=== PATIENT | female | born 1930 | race Asian ===

== ENCOUNTER 2019-07-04 17:06 | Inpatient (IN) | payer MEDICARE, OTHER ==
[~2019-07-04] VITALS: Ht 152.4 cm; Wt 49.4 kg
[2019-07-04] MEDS ORDERED: diphenhydrAMINE 50 MG/1 ML VIAL IM ONE (17:15)
--- NOTE | 2019-07-04 17:35 | NUR ---
PT IS A/OX1, BIB PRIVATE AMBULANCE FROM FROM [facility], FOR MEDICAL CLEARANCE. PER REPORT, PT HAS BEEN INCREASINGLY AGITATED AND "STRIKING" STAFF AT THE SNF. PT ARRIVED AGITATED AND DOES NOT SPEAK SOMALI. PT'S PRIMARY LANGUAGE IS GERMAN, WHICH I AM ABLE TO SPEAK AND COMMICATE W/ THE PT. PT IS REDIRECTABLE AND VERBALLY AGREED NOT TO STRIKE THE ER STAFF. PT HAS BEEN CALM AND COOPERATIVE SINCE ARRIVAL. VSS. PT DENIES PAIN, C/P, SOB, N/V/D, DIZZINESS, HEADACHE. PT'S FAMILY IS AT THE BEDSIDE.
[2019-07-04 17:38] LABS: BASOPHILS # (AUTO) 0.1 K/uL (0.0-8.0); BASOPHILS % (AUTO) 1.1 % (0.0-2.0); EOSINOPHILS # (AUTO) 0.3 K/uL (0.0-0.7); EOSINOPHILS % (AUTO) 5.1 % (0.0-7.0); HEMATOCRIT 33.1 % (31.2-41.9); HEMOGLOBIN 10.9 g/dL (10.9-14.3); LYMPHOCYTES # (AUTO) 1.5 K/uL (20.0-40.0); LYMPHOCYTES % (AUTO) 25.7 % (20.5-51.5); MEAN CORPUSCULAR HEMOGLOBIN 31.4 uug (24.7-32.8); MEAN CORPUSCULAR HGB CONC 33 g/dL (32.3-35.6); MEAN CORPUSCULAR VOLUME 94.8 fL (75.5-95.3); MONOCYTES # (AUTO) 0.8 K/uL (2.0-10.0); NEUTROPHILS # (AUTO) 3.3 K/uL (1.8-8.9); NEUTROPHILS % (AUTO) 55.1 % (38.5-71.5); PLATELET COUNT (AUTO) 258 K/uL (179-408); RED BLOOD CELL COUNT(AUTO) 3.49 MIL/uL (3.63-4.92)
[2019-07-04 17:41] LABS: *BILIRUBIN,URIN NEGATIVE (NEGATIVE); *KETONES,URINE NEGATIVE (NEGATIVE); *UROBILINOGEN,URINE 0.2 E.U./dl (NORMAL); LEUKOCYTE ESTERASE ,URINE 3+ (NEGATIVE); NITRITE, URINE NEGATIVE (NEGATIVE); PH,URINE 5.5 (5.0-8.0); UGLUCOSE NEGATIVE (NEGATIVE)
[2019-07-04 17:49] LABS: CARBON DIOXIDE 25 mmol/L (21-32); CHLORIDE 98 mmol/L (98-107); CREATININE 0.8 mg/dL (0.6-1.3); GLUCOSE 160 mg/dL (74-106); POTASSIUM 4.2 mmol/L (3.5-5.1); UREA NITROGEN, BLOOD 12 mg/dL (7-18)
[2019-07-04 17:54] LABS: ACETAMINOPHEN < 2.0 ug/mL (10-30); ALANINE AMINOTRANSFERASE 14 U/L (14-59); ALKALINE PHOSPHATASE 42 U/L (50-136); ASPARTATE AMINOTRANSFERASE 19 U/L (15-37); BILIRUBIN,DIRECT 0.1 mg/dL (0.0-0.2); BILIRUBIN,TOTAL 0.4 mg/dL (0.2-1.0); TOTAL PROTEIN, SERUM 8.2 g/dL (6.4-8.2)
[2019-07-04] MEDS ORDERED: BIMA2.5D5 EACHEYE (17:57)
[2019-07-04] MEDS ORDERED: LINA5TAB PO (17:57)
[2019-07-04] MEDS ORDERED: QUET25TA PO ×2 (17:57)
[2019-07-04] MEDS ORDERED: BRIM5DRO2 OP (17:57)
[2019-07-04] MEDS ORDERED: BLOO-140 IN (17:57)
[2019-07-04] MEDS ORDERED: DOCU100C36 PO (17:57)
[2019-07-04] MEDS ORDERED: METF-442 PO (17:57)
[2019-07-04] MEDS ORDERED: ACET325T53 PO (17:57)
[2019-07-04] MEDS ORDERED: MULT-213 PO (17:57)
[2019-07-04] MEDS ORDERED: NETA2.5D OP (17:57)
[2019-07-04] MEDS ORDERED: AMYL1CAP56 PO (17:57)
[2019-07-04 17:58] LABS: ETHANOL < 3 MG/DL (0-0)
[2019-07-04 17:59] LABS: *AMPHETAMINE, URINE NEGATIVE (NEGATIVE); *BARBITURATE, URINE NEGATIVE (NEGATIVE); *CANNABINOID, URINE NEGATIVE (NEGATIVE); *COCCAINE, URINE NEGATIVE (NEGATIVE); *OPIATE, URINE NEGATIVE (NEGATIVE); *PHENCYCLIDINE SCREEN,URINE NEGATIVE (NEGATIVE)
[2019-07-04 18:07] LABS: *BLOOD, URINE TRACE (NEGATIVE); *CLARITY,URINE CLOUDY (CLEAR); *COLOR,URINE YELLOW (YELLOW)
[2019-07-04 18:09] LABS: BACTERIA,URINE MANY /HPF (NONE SEEN); SQUAMOUS EPITHELIAL CELL,UR FEW /HPF (NONE SEEN); WBC,URINE 80-100 /HPF (0-3)
[2019-07-04] MEDS ORDERED: CEFTRIAXONE 1 G VIAL ONE (18:26)
[2019-07-04] MEDS ORDERED: LIDOCAINE HCL 1% 20 ML VIAL ONE (18:26)
[2019-07-04] MEDS ORDERED: CEFTRIAXONE 1 G VIAL IM ONE (18:30)
--- NOTE | 2019-07-04 19:07 | NUR ---
SHIFT REPORT GIVEN TO CHENCHO Rg RN.
--- NOTE | 2019-07-04 19:36 | NUR ---
SPOKE TO ART, CRISIS MECHANIC FOREMAN, WILL BE HERE IN 15 MIN.
--- NOTE | 2019-07-04 19:46 | NUR ---
ART, COMMUNITY INTEGRATION SPECIALIST ARRIVED IN ER.
--- NOTE | 2019-07-04 20:26 | NUR ---
Pt. admitted to MHU , under care of Dr. WHITTEN Belongs List completed.
--- NOTE | 2019-07-04 20:39 | NUR ---
SVITLANA PAGED, TORI LAUGHLIN PAGED.
[2019-07-04] MEDS ORDERED: IV NORMAL SALINE 500 ML IV ONE ×2 (21:00→22:00)
--- NOTE | 2019-07-04 21:00 | NUR ---
EPIC PAGED AGAIN.
--- NOTE | 2019-07-04 21:15 | NUR ---
EPIC PAGED AGAIN.
--- NOTE | 2019-07-04 22:08 | NUR ---
Pt. admitted to TELE , under care of Dr. TORI Riojas List completed. STARTED SECOND 500ML NS BAG, FLOOR NURSE TO FINISH NS ON FLOOR.
--- NOTE | 2019-07-04 22:17 | NUR ---
MRSA COLLECTED AND SENT TO LAB.
[2019-07-04] MEDS ORDERED: MAGNESIUM HYDROXIDE 30 ML LIQUID UDC PO PRN (22:30)
[2019-07-04] MEDS ORDERED: Z GUARD REMEDY PASTE 57 GM TUBE TOP PRN (22:30)
[2019-07-04] MEDS ORDERED: ACETAMINOPHEN 325 MG TABLET PO PRN ×2 (22:30)
[2019-07-04] MEDS ORDERED: ONDANSETRON 4 MG/2 ML VIAL IV PRN (22:30)
[2019-07-04] MEDS ORDERED: DEXTROSE 50% 50 ML DISP.SYRIN IV PRN (22:30)
[2019-07-04] MEDS: BRIMONIDINE-P 0.1% OPHTH DROP 5 ML DROPS EACHEYE SCH (22:30)
[2019-07-04] MEDS ORDERED: BIMATOPROST 0.01% OPHT DROP 2.5 ML BOTTLE EACHEYE SCH (22:30)
[2019-07-04 23:30] VITALS: BP 116/52
[2019-07-04] MEDS ORDERED: LORAZEPAM 2 MG/1 ML VIAL IV PRN (23:30)
[2019-07-04] MEDS: BLOOD SUGAR DIAGNOSTIC 1 EACH STRIP VI SCH (23:58)
[2019-07-04] MEDS: METFORMIN HCL 500 MG TABLET PO SCH (23:58)
[2019-07-05] MEDS: IV NS 1000 ML 1,000 ML IV PRN
[2019-07-05 04:54] VITALS: BP 119/51
--- NOTE | 2019-07-05 05:20 | NUR ---
Admitted to room 305; pt is very confused; refusing care; language barrier, pt speaking Slovak; Charge Nurse Barbaratrung spoke to pt's daughter at home if they coould come but they cant for they live far; Pt became very agitated, hitting staff and screaming and a wanderer, Dr Davila informed and gave order for ativan 1mg IV x1; ativan administered to pt and then pt slept. safety maintained; pt put in 2:1 sitter for safety.
[2019-07-05] MEDS ORDERED: LORAZEPAM 2 MG/1 ML VIAL IV STA (06:26)
[2019-07-05 06:35] LABS: BASOPHILS # (AUTO) 0.1 K/uL (0.0-8.0); EOSINOPHILS # (AUTO) 0.2 K/uL (0.0-0.7); EOSINOPHILS % (AUTO) 3.2 % (0.0-7.0); HEMATOCRIT 31.9 % (31.2-41.9); HEMOGLOBIN 10.6 g/dL (10.9-14.3); LYMPHOCYTES # (AUTO) 1.6 K/uL (20.0-40.0); LYMPHOCYTES % (AUTO) 25.7 % (20.5-51.5); MEAN CORPUSCULAR HEMOGLOBIN 31.8 uug (24.7-32.8); MEAN CORPUSCULAR HGB CONC 33 g/dL (32.3-35.6); MEAN CORPUSCULAR VOLUME 96.3 fL (75.5-95.3); MONOCYTES # (AUTO) 0.7 K/uL (2.0-10.0); MONOCYTES % (AUTO) 11.5 % (0.0-11.0); NEUTROPHILS # (AUTO) 3.7 K/uL (1.8-8.9); NEUTROPHILS % (AUTO) 58.6 % (38.5-71.5); PLATELET COUNT (AUTO) 228 K/uL (179-408); RED BLOOD CELL COUNT(AUTO) 3.32 MIL/uL (3.63-4.92); WHITE BLOOD COUNT (AUTO) 6.4 K/uL (3.8-11.8)
[2019-07-05 06:43] LABS: CARBON DIOXIDE 25 mmol/L (21-32); CHLORIDE 103 mmol/L (98-107); CHOLESTEROL 191 mg/dL (<200); CREATININE 0.7 mg/dL (0.6-1.3); GLUCOSE 126 mg/dL (74-106); HDL CHOLESTEROL 58 mg/dL (40-60); MAGNESIUM 1.6 mg/dL (1.8-2.4); PHOSPHOROUS 3.7 mg/dL (2.5-4.9); POTASSIUM 3.9 mmol/L (3.5-5.1); TRIGLYCERIDES 88 MG/DL (30-150); UREA NITROGEN, BLOOD 10 mg/dL (7-18)
[2019-07-05] MEDS: BLOOD SUGAR DIAGNOSTIC 1 EACH STRIP VI SCH ×4 (06:46→21:42)
--- NOTE | 2019-07-05 07:32 | NUR ---
pt awake screaming at staff and hitting, referred to [facility] with order for ativan, given IVP; continue to monitor.
--- NOTE | 2019-07-05 08:00 | NUR ---
IN BED AWAKE ALERT BUT CONFUSED X3, VERY AGITATED AND VERBALLY AND PHYSICALLY COMBATIVE, TRIED TO GET OUT OB BED. REFUSED TO TAKE MEDICATION AND EAT BREAKFAST. WILL FOLLOW-UP WITH HOSPITALIST AND DR WHITTEN FOR PSYCH CONSULT. NO SS OF PAIN OR DISTRESS. CONTINUE WITH 1:1 SITTER
[2019-07-05] MEDS: MULTIVITAMINS,THERAPEUTIC TABLET PO SCH (08:43)
[2019-07-05] MEDS: DOCUSATE SODIUM 100 MG CAPSULE PO SCH ×2 (08:43→16:59)
[2019-07-05] MEDS: METFORMIN HCL 500 MG TABLET PO SCH ×2 (08:43→16:59)
[2019-07-05] MEDS: LINAGLIPTIN 5 MG TABLET PO SCH (08:43)
[2019-07-05] MEDS: BRIMONIDINE-P 0.1% OPHTH DROP 5 ML DROPS EACHEYE SCH ×2 (08:44→17:00)
--- NOTE | 2019-07-05 10:45 | NUR ---
seen by dr palencia made aware of patient behavior with orders for anxiety pending dr tucker consult
[2019-07-05] MEDS: INSULIN REGULAR, HUMAN 300 UNIT/3 ML VIAL SQ PRN ×2 (12:07→17:36)
[2019-07-05] MEDS: HYDROCODONE/APAP 5-325MG TABLET PO PRN (12:30)
[2019-07-05] MEDS: MAGNESIUM SULFATE/D5W 100 ML IV SCH ×2 (14:15→14:44)
[2019-07-05] MEDS: LORAZEPAM 2 MG/1 ML VIAL IV PRN (14:50)
[2019-07-05] MEDS: QUETIAPINE FUMARATE 25 MG TABLET PO SCH (16:59)
[2019-07-05] MEDS ORDERED: CEFTRIAXONE 1 G in IV DEXTROSE 5% 50 ML IV SCH (18:00)
--- NOTE | 2019-07-05 18:39 | NUR ---
SEEN BY DR WIHTTEN FOR PSYCH EVAL, PLAN DC TO MHU WHEN MEDICALLY CLEARED. CONTINUE WITH 1:1
[2019-07-05] MEDS: LATANOPROST OPHT DROP 2.5 ML BOTTLE EACHEYE SCH (20:40)
--- NOTE | 2019-07-05 23:25 | NUR ---
patient is becoming angry, agitated, aggressive towards staff, striking out and shouting. Attempted to redirect, dimmed the light, gave warm blanket. Seems calmer but still removing certified mortician leads.
[2019-07-05] MEDS ORDERED: LORAZEPAM 2 MG/1 ML VIAL IV ONE (23:30)
[2019-07-06] MEDS: IV NS 1000 ML 1,000 ML IV PRN ×3 (00:09→20:14)
[2019-07-06 00:27] VITALS: BP 108/42
[2019-07-06] MEDS: BLOOD SUGAR DIAGNOSTIC 1 EACH STRIP VI SCH ×6 (06:49→21:50)
[2019-07-06 06:50] VITALS: BP 136/52
--- NOTE | 2019-07-06 07:36 | NUR ---
continue with 1:1 sitter, remains confused and disoriented x3, high risk for fall. continue to refuse to eat sleeping at short intervals
[2019-07-06 08:14] LABS: CARBON DIOXIDE 24 mmol/L (21-32); CHLORIDE 105 mmol/L (98-107); CREATININE 0.6 mg/dL (0.6-1.3); GLUCOSE 117 mg/dL (74-106); MAGNESIUM 2.5 mg/dL (1.8-2.4); UREA NITROGEN, BLOOD 9 mg/dL (7-18)
[2019-07-06] MEDS: METFORMIN HCL 500 MG TABLET PO SCH ×2 (08:32→16:39)
[2019-07-06] MEDS: LINAGLIPTIN 5 MG TABLET PO SCH (08:33)
[2019-07-06] MEDS: DOCUSATE SODIUM 100 MG CAPSULE PO SCH ×2 (08:33→16:39)
[2019-07-06] MEDS: HYDROCODONE/APAP 5-325MG TABLET PO PRN (08:33)
[2019-07-06] MEDS: MULTIVITAMINS,THERAPEUTIC TABLET PO SCH (08:34)
[2019-07-06] MEDS: QUETIAPINE FUMARATE 25 MG TABLET PO SCH ×3 (08:34→20:45)
[2019-07-06] MEDS: BRIMONIDINE-P 0.1% OPHTH DROP 5 ML DROPS EACHEYE SCH ×2 (08:34→16:37)
[2019-07-06] MEDS: LORAZEPAM 2 MG/1 ML VIAL IV PRN ×2 (09:00→20:05)
[2019-07-06] MEDS: INSULIN REGULAR, HUMAN 300 UNIT/3 ML VIAL SQ PRN (11:46)
--- NOTE | 2019-07-06 12:00 | NUR ---
PATIENT REMAINS CALMED, UP ON CHAIR BUT CONTINUE TO REFUSE CARE. BECOMES COMBATIVE AND AGGRESSIVE WITH CARE
[2019-07-06 12:03] VITALS: BP 145/84
[2019-07-06] MEDS: NITROFURANTOIN/NITROFURAN MAC 100 MG CAPSULE PO SCH ×2 (14:49→16:37)
--- NOTE | 2019-07-06 15:58 | NUR ---
SEEN BY DR Paco TIJERINA FOR MEDICAL FOLLOW-UP AND DR WHITTEN FOR PSYCH. ALSO SPOKE WITH DAUGHTER AGREED PLAN TO GO TO MHU FOR TRANSITION WHENB MEDICALLY CLEARED.
[2019-07-06 16:00] VITALS: BP 127/72
--- NOTE | 2019-07-06 16:30 | NUR ---
PATIENT BS 68, AWAKE ALERT, WARM AND DRY SKIN. OJ WITH SUGAR GIVEN PO. RECHECKED AFTER 15-30 MINS BS 66 ASYMPTOMATIC. RECHECKED AGAIN AT 1732 BS 78. WILL OBSERVE
[2019-07-06 20:00] VITALS: BP 163/90
[2019-07-06] MEDS: LATANOPROST OPHT DROP 2.5 ML BOTTLE EACHEYE SCH (20:45)
--- NOTE | 2019-07-06 21:00 | NUR ---
patient is striking at staff, screams, pulls on the IV line. Poorly re-directable, spits out meds, throws blankets around the room.
[2019-07-07 00:44] VITALS: BP 170/83
[2019-07-07] MEDS: LORAZEPAM 2 MG/1 ML VIAL IV PRN ×3 (02:09→20:54)
--- NOTE | 2019-07-07 04:57 | NUR ---
patient continues to be agitated, aggressive, pulling lines, refusing Tx, scratching herself. Order for 1:1 sitter was put for patient safety.
[2019-07-07 06:16] VITALS: BP 158/68
--- NOTE | 2019-07-07 06:52 | NUR ---
patient is awake, uncooperative with care, strikes at staff, screams, attempts to rip out her iv line. Unable to administer accucheck in the AM, unable to administer oral meds during the shift. Ativan 1mg Q6 IV is vaguely effective. According to Uzbek-speaking nurse, the patient is delusional, confused with confabulations and persecutory delusions, continues to demand to be released, tries to leave the bed. Sitter is at bedside for safety.
[2019-07-07] MEDS: BLOOD SUGAR DIAGNOSTIC 1 EACH STRIP VI SCH ×4 (07:07→21:10)
[2019-07-07 07:30] VITALS: BP 138/67
--- NOTE | 2019-07-07 08:00 | NUR ---
AWAKE ALERT BUT REMAINS CONFUSED X3, COMBATIVE AND PHYSICALLY ABUSIVE WITH STAFF DURING CARE. CONTINUE TO REFUSE TO EAT, IVF AT NS 75 ML/HR SR ON MONITOR
[2019-07-07] MEDS: NITROFURANTOIN/NITROFURAN MAC 100 MG CAPSULE PO SCH (08:04)
[2019-07-07] MEDS: LINAGLIPTIN 5 MG TABLET PO SCH (08:05)
[2019-07-07] MEDS: DOCUSATE SODIUM 100 MG CAPSULE PO SCH ×2 (08:05→16:33)
[2019-07-07] MEDS: HYDROCODONE/APAP 5-325MG TABLET PO PRN (08:05)
[2019-07-07] MEDS: MULTIVITAMINS,THERAPEUTIC TABLET PO SCH (08:05)
[2019-07-07] MEDS: QUETIAPINE FUMARATE 25 MG TABLET PO SCH ×3 (08:05→20:53)
[2019-07-07] MEDS: METFORMIN HCL 500 MG TABLET PO SCH ×2 (08:05→16:33)
[2019-07-07] MEDS: BRIMONIDINE-P 0.1% OPHTH DROP 5 ML DROPS EACHEYE SCH ×2 (08:06→16:25)
[2019-07-07] MEDS: IV NS 1000 ML 1,000 ML IV PRN (08:06)
[2019-07-07] MEDS ORDERED: CEFTRIAXONE 1 G VIAL IM SCH (09:00)
[2019-07-07] MEDS: IV D5/ 0.9% NACL 1,000 ML IV PRN (09:49)
--- NOTE | 2019-07-07 10:00 | NUR ---
SEEN BY DR KEENAN AND HOSPITALIST DR TIJERINA WITH ORDER TO CHANGE PATIENT STATUS TO MS. HOSPITALIST MADE AWARE OF LOW BS DURING THE EVENING WITH ORDER TO CHANGE IV TO D5 NS,
[2019-07-07] MEDS ORDERED: CEFTRIAXONE 1 G in IV DEXTROSE 5% 50 ML IV SCH (11:00)
[2019-07-07] MEDS: INSULIN REGULAR, HUMAN 300 UNIT/3 ML VIAL SQ PRN ×2 (11:37→21:15)
[2019-07-07 12:05] VITALS: BP 130/70
--- NOTE | 2019-07-07 14:02 | NUR ---
PATIENT UP ON BED NO SS OF AGITATION, PAIN OR SOB. CONTINUE WITH 1:1 SITTER
[2019-07-07] MEDS: NORMAL SALINE IV SCH ×2 (14:33→21:43)
[2019-07-07] MEDS: AMPICILLIN IV SCH ×2 (14:33→21:43)
[2019-07-07 16:01] VITALS: BP 164/74
--- NOTE | 2019-07-07 18:11 | NUR ---
PATIENT STARTED TO BE MORE ALERT AND DRINKING RESOURCE AND JUICE.
[2019-07-07 19:30] VITALS: BP 137/67
--- NOTE | 2019-07-07 19:30 | NUR ---
patient received in bed sleeping. sitter at bed side for safety. comfort and safety measures provided. iv intact and patent. will continue plan of care.
[2019-07-07] MEDS: LATANOPROST OPHT DROP 2.5 ML BOTTLE EACHEYE SCH (20:54)
[2019-07-08] MEDS: IV D5/ 0.9% NACL 1,000 ML IV PRN (00:16)
[2019-07-08] MEDS ORDERED: MORPHINE SULFATE 2 MG/1 ML DISP.SYRIN IV PRN (04:00)
[2019-07-08] MEDS: NORMAL SALINE IV SCH (05:03)
[2019-07-08] MEDS: AMPICILLIN IV SCH (05:03)
[2019-07-08 06:36] VITALS: BP 137/75
[2019-07-08] MEDS: BLOOD SUGAR DIAGNOSTIC 1 EACH STRIP VI SCH ×3 (06:41→16:50)
--- NOTE | 2019-07-08 06:51 | NUR ---
patient slept throughout night. v/s stable. no signs of acute distress. all medications administered and tolerated well. Ativan administered once for anxiety and agitation. will endorse care to morning nurse. Addendum: 07/08/19 at 0752 by RUDOLPH ASTUDILLO RN ativan administered 2053 and 706. when taking out of Pyxis at 07 Pyxis reported count was off, but charge corrected and contacted pharmacy. count was 12 before taking the ativan out at 0707. 11 after taking the ativan out.
--- NOTE | 2019-07-08 06:53 | NUR ---
patient refused am labs this morning. will endorse to morning nurse to inform
[2019-07-08] MEDS: LORAZEPAM 2 MG/1 ML VIAL IV PRN (07:07)
[2019-07-08 07:41] VITALS: BP 154/75
--- NOTE | 2019-07-08 08:10 | NUR ---
Pt. is resting in bed with sitter at bedside aox1 confused. IV wrapped in R forearm 20 gauge intact patent running 75 cc hour. Pt. is uncooperative with care. Safety measures in place. Call light within reach. Will continue to monitor pt.
[2019-07-08] MEDS: INSULIN REGULAR, HUMAN 300 UNIT/3 ML VIAL SQ PRN ×2 (08:47→18:05)
[2019-07-08] MEDS: METFORMIN HCL 500 MG TABLET PO SCH ×2 (08:48→17:00)
[2019-07-08] MEDS: DOCUSATE SODIUM 100 MG CAPSULE PO SCH ×2 (08:49→17:01)
[2019-07-08] MEDS: QUETIAPINE FUMARATE 25 MG TABLET PO SCH ×2 (08:49→17:01)
[2019-07-08] MEDS: LINAGLIPTIN 5 MG TABLET PO SCH (08:49)
[2019-07-08] MEDS: MULTIVITAMINS,THERAPEUTIC TABLET PO SCH (08:49)
[2019-07-08] MEDS: BRIMONIDINE 0.2% OPHT DROP 10 ML BOTTLE EACHEYE SCH ×2 (10:18→17:01)
[2019-07-08 12:32] VITALS: BP 153/65
--- NOTE | 2019-07-08 15:25 | NUR ---
Pt.'s IV infiltrated. Removed IV and assessed site. One more dose of IV antibiotics is scheduled. Due to pt. being d/cd to [facility] asked Dr. Rueda if IV antibiotics can be given PO. Awaiting response from doctor about antibiotics.
[2019-07-08 15:47] VITALS: BP 129/87
--- NOTE | 2019-07-08 16:13 | NUR ---
Dr. Rueda approved PO ampicillin instead of IV ampicillin due to IV infiltrating and removed. Spoke to pharmacy about correct dose. Put in new order awaiting PO ampicillin for pt.
[2019-07-08] MEDS: LATANOPROST OPHT DROP 2.5 ML BOTTLE EACHEYE SCH (17:01)
--- NOTE | 2019-07-08 17:08 | NUR ---
Daughter at bedside. Pt. took all medications and has increased appetite. Awaiting d/c to M[facility] unit. Daughter aware of plans.
--- NOTE | 2019-07-08 19:32 | NUR ---
Pt. stable and discharged to MHU via wheel chair. Walked pt. down to MHU unit with ANALYSIS INTERN and belongings. Report given to PM nurse.
== END 2019-07-08 19:20 | DRG 689 ==
LOC: ER 17:08 → TELE3 22:01 → MEDSURG3 07-07 13:28
DX: N39.0 Urinary tract infection, site not specified (principal); G93.41 Metabolic encephalopathy; E87.2 Acidosis; F03.91 Unspecified dementia, unspecified severity, with behavioral disturbance; E11.65 Type 2 diabetes mellitus with hyperglycemia; H40.9 Unspecified glaucoma; K59.00 Constipation, unspecified; Z91.14 Patient's other noncompliance with medication regimen; B95.2 Enterococcus as the cause of diseases classified elsewhere; F29 Unspecified psychosis not due to a substance or known physiological condition; E11.9 Type 2 diabetes mellitus without complications
CPT/HCPCS: 36415; 70030-TC; 70450; 71045; 80307; 83605; 83735; 84100; 84443; 85025; 85730; 87040; 87086; 93005; A4663; G0378; G0480; G0480-TC; J0290; J0696; J1815; J2060; J3475; J3490; J7030; J7040; J7042; J7060

== ENCOUNTER 2019-07-08 20:02 | Inpatient (IN) | payer MEDICARE, OTHER ==
[~2019-07-08] VITALS: Ht 152.4 cm; Wt 44.9 kg
[2019-07-08 20:00] VITALS: BP 115/55
[~2019-07-08 20:02] MED LIST: ACET325T53 PO; AMYL1CAP56 PO; BIMA2.5D5 EACHEYE; BLOO-140 IN; BRIM5DRO2 OP; DOCU100C36 PO; LINA5TAB PO; METF-442 PO; MULT-213 PO; NETA2.5D OP; QUET25TA PO
[2019-07-08] MEDS ORDERED: MAG HYDROX/AL HYDROX/SIMETH 30 ML LIQUID UDC PO PRN (20:15)
[2019-07-08] MEDS ORDERED: TEMAZEPAM 7.5 MG CAPSULE PO PRN (20:15)
[2019-07-08] MEDS ORDERED: MAGNESIUM HYDROXIDE 30 ML LIQUID UDC PO PRN (20:15)
[2019-07-08] MEDS ORDERED: BLOOD SUGAR DIAGNOSTIC 1 EACH STRIP VI ONE (20:15)
[2019-07-09 07:30] VITALS: BP 108/50
[2019-07-09] MEDS: LORAZEPAM 0.5 MG TABLET PO PRN (10:03)
[2019-07-09] MEDS: ACETAMINOPHEN 325 MG TABLET PO PRN (12:05)
[2019-07-09] MEDS ORDERED: Medication Not On Formulary EA (Metformin Hcl 1,000 MG) PO SCH (17:00)
[2019-07-09] MEDS: DOCUSATE SODIUM 100 MG CAPSULE PO SCH (17:38)
[2019-07-09] MEDS: QUETIAPINE FUMARATE 25 MG TABLET PO SCH ×2 (17:38→21:38)
[2019-07-09] MEDS: METFORMIN HCL 500 MG TABLET PO SCH (17:38)
[2019-07-09] MEDS: LIPASE/PROTEASE/AMYLASE 4200 UNITS CAPSULE.DR PO SCH (17:40)
[2019-07-09] MEDS ORDERED: Medication Not On Formulary EA (Netarsudil Mesylate (Rhopressa) 1 DROP) OP SCH (18:00)
[2019-07-09] MEDS ORDERED: BIMATOPROST 0.01% OPHT DROP 2.5 ML BOTTLE EACHEYE SCH (21:00)
[2019-07-09 21:35] VITALS: BP 120/59
[2019-07-09] MEDS: NITROFURANTOIN/NITROFURAN MAC 100 MG CAPSULE PO SCH (21:38)
[2019-07-09] MEDS: TIMOLOL MALEATE 0.5% OPHT DROP 5 ML BOTTLE EACHEYE SCH (21:40)
[2019-07-09] MEDS: LATANOPROST OPHT DROP 2.5 ML BOTTLE EACHEYE SCH (21:41)
[2019-07-09] MEDS: BRIMONIDINE 0.2% OPHT DROP 10 ML BOTTLE EACHEYE SCH (21:41)
[2019-07-10 07:58] VITALS: BP 136/63
[2019-07-10 08:00] VITALS: BP 136/63
[2019-07-10] MEDS: MULTIVIT, IRON, MIN NO. 8, FA TABLET PO SCH (08:56)
[2019-07-10] MEDS: NITROFURANTOIN/NITROFURAN MAC 100 MG CAPSULE PO SCH ×2 (08:56→20:46)
[2019-07-10] MEDS: METFORMIN HCL 500 MG TABLET PO SCH ×2 (08:56→18:01)
[2019-07-10] MEDS: LINAGLIPTIN 5 MG TABLET PO SCH (08:56)
[2019-07-10] MEDS: ACETAMINOPHEN 325 MG TABLET PO PRN (08:57)
[2019-07-10] MEDS: DOCUSATE SODIUM 100 MG CAPSULE PO SCH ×2 (08:59→18:01)
[2019-07-10] MEDS: OMEGA-3 FATTY ACIDS/FISH OIL CAPSULE PO SCH (08:59)
[2019-07-10] MEDS: QUETIAPINE FUMARATE 25 MG TABLET PO SCH ×3 (08:59→20:46)
[2019-07-10] MEDS: TIMOLOL MALEATE 0.5% OPHT DROP 5 ML BOTTLE EACHEYE SCH ×2 (08:59→20:45)
[2019-07-10] MEDS ORDERED: Medication Not On Formulary EA (Multivitamins W-Minerals (Multivitamin With Minerals) 1 PO SCH (09:00)
[2019-07-10] MEDS: BRIMONIDINE 0.2% OPHT DROP 10 ML BOTTLE EACHEYE SCH ×2 (09:00→20:45)
[2019-07-10] MEDS: LIPASE/PROTEASE/AMYLASE 4200 UNITS CAPSULE.DR PO SCH ×3 (09:00→18:01)
[2019-07-10 15:04] VITALS: BP 94/50
[2019-07-10 20:00] VITALS: BP 126/59
[2019-07-10] MEDS: LATANOPROST OPHT DROP 2.5 ML BOTTLE EACHEYE SCH (20:46)
[2019-07-11 04:00] VITALS: BP 143/76
[2019-07-11 08:00] VITALS: BP 146/73
[2019-07-11] MEDS: METFORMIN HCL 500 MG TABLET PO SCH ×2 (08:30→17:10)
[2019-07-11] MEDS: LIPASE/PROTEASE/AMYLASE 4200 UNITS CAPSULE.DR PO SCH ×3 (08:31→17:03)
[2019-07-11] MEDS: BRIMONIDINE 0.2% OPHT DROP 10 ML BOTTLE EACHEYE SCH ×2 (08:31→20:35)
[2019-07-11] MEDS: TIMOLOL MALEATE 0.5% OPHT DROP 5 ML BOTTLE EACHEYE SCH ×2 (08:32→20:36)
[2019-07-11] MEDS: MULTIVIT, IRON, MIN NO. 8, FA TABLET PO SCH (08:32)
[2019-07-11] MEDS: LINAGLIPTIN 5 MG TABLET PO SCH (08:32)
[2019-07-11] MEDS: DOCUSATE SODIUM 100 MG CAPSULE PO SCH ×2 (08:32→17:03)
[2019-07-11] MEDS: NITROFURANTOIN/NITROFURAN MAC 100 MG CAPSULE PO SCH ×2 (08:32→20:35)
[2019-07-11] MEDS: QUETIAPINE FUMARATE 25 MG TABLET PO SCH ×3 (08:32→20:35)
[2019-07-11] MEDS: OMEGA-3 FATTY ACIDS/FISH OIL CAPSULE PO SCH (08:32)
[2019-07-11 15:38] VITALS: BP 128/41
[2019-07-11 20:32] VITALS: BP 126/56
[2019-07-11] MEDS: LORAZEPAM 0.5 MG TABLET PO PRN (20:35)
[2019-07-11] MEDS: LATANOPROST OPHT DROP 2.5 ML BOTTLE EACHEYE SCH (20:36)
[2019-07-12 07:57] VITALS: BP 155/71
[2019-07-12] MEDS: METFORMIN HCL 500 MG TABLET PO SCH ×2 (08:24→17:01)
[2019-07-12] MEDS: LIPASE/PROTEASE/AMYLASE 4200 UNITS CAPSULE.DR PO SCH ×3 (08:25→17:01)
[2019-07-12] MEDS: BRIMONIDINE 0.2% OPHT DROP 10 ML BOTTLE EACHEYE SCH ×2 (08:29→20:08)
[2019-07-12] MEDS: DOCUSATE SODIUM 100 MG CAPSULE PO SCH ×2 (08:29→17:01)
[2019-07-12] MEDS: TIMOLOL MALEATE 0.5% OPHT DROP 5 ML BOTTLE EACHEYE SCH ×2 (08:29→20:03)
[2019-07-12] MEDS: MULTIVIT, IRON, MIN NO. 8, FA TABLET PO SCH (08:30)
[2019-07-12] MEDS: QUETIAPINE FUMARATE 25 MG TABLET PO SCH ×3 (08:30→20:10)
[2019-07-12] MEDS: OMEGA-3 FATTY ACIDS/FISH OIL CAPSULE PO SCH (08:30)
[2019-07-12] MEDS: LINAGLIPTIN 5 MG TABLET PO SCH (08:30)
[2019-07-12 15:50] VITALS: BP 136/50
[2019-07-12] MEDS: LATANOPROST OPHT DROP 2.5 ML BOTTLE EACHEYE SCH (20:17)
[2019-07-12 20:30] VITALS: BP 145/62
[2019-07-13 07:30] VITALS: BP 142/61
[2019-07-13 07:51] LABS: BASOPHILS # (AUTO) 0.1 K/uL (0.0-8.0); BASOPHILS % (AUTO) 1.1 % (0.0-2.0); EOSINOPHILS # (AUTO) 0.4 K/uL (0.0-0.7); EOSINOPHILS % (AUTO) 6.9 % (0.0-7.0); HEMATOCRIT 35.1 % (31.2-41.9); HEMOGLOBIN 11.7 g/dL (10.9-14.3); LYMPHOCYTES # (AUTO) 1.3 K/uL (20.0-40.0); LYMPHOCYTES % (AUTO) 20.9 % (20.5-51.5); MEAN CORPUSCULAR HEMOGLOBIN 31.8 uug (24.7-32.8); MEAN CORPUSCULAR HGB CONC 33 g/dL (32.3-35.6); MONOCYTES # (AUTO) 0.7 K/uL (2.0-10.0); MONOCYTES % (AUTO) 11.5 % (0.0-11.0); NEUTROPHILS # (AUTO) 3.7 K/uL (1.8-8.9); NEUTROPHILS % (AUTO) 59.6 % (38.5-71.5); PLATELET COUNT (AUTO) 306 K/uL (179-408); RED BLOOD CELL COUNT(AUTO) 3.69 MIL/uL (3.63-4.92); WHITE BLOOD COUNT (AUTO) 6.3 K/uL (3.8-11.8)
[2019-07-13] MEDS: METFORMIN HCL 500 MG TABLET PO SCH ×2 (08:06→17:14)
[2019-07-13] MEDS: QUETIAPINE FUMARATE 25 MG TABLET PO SCH ×3 (08:08→21:07)
[2019-07-13] MEDS: MULTIVIT, IRON, MIN NO. 8, FA TABLET PO SCH (08:08)
[2019-07-13] MEDS: OMEGA-3 FATTY ACIDS/FISH OIL CAPSULE PO SCH (08:08)
[2019-07-13] MEDS: DOCUSATE SODIUM 100 MG CAPSULE PO SCH ×2 (08:09→16:29)
[2019-07-13] MEDS: BRIMONIDINE 0.2% OPHT DROP 10 ML BOTTLE EACHEYE SCH ×2 (08:10→21:07)
[2019-07-13] MEDS: LIPASE/PROTEASE/AMYLASE 4200 UNITS CAPSULE.DR PO SCH ×3 (08:10→16:32)
[2019-07-13] MEDS: TIMOLOL MALEATE 0.5% OPHT DROP 5 ML BOTTLE EACHEYE SCH ×2 (08:11→21:17)
[2019-07-13 08:35] LABS: BILIRUBIN,TOTAL 0.4 mg/dL (0.2-1.0); CREATININE 0.7 mg/dL (0.6-1.3); MAGNESIUM 1.7 mg/dL (1.8-2.4); PHOSPHOROUS 4.3 mg/dL (2.5-4.9); POTASSIUM 4.1 mmol/L (3.5-5.1)
[2019-07-13] MEDS: LINAGLIPTIN 5 MG TABLET PO SCH (09:30)
[2019-07-13] MEDS ORDERED: MAGNESIUM OXIDE 400 MG TABLET PO ONE (14:45)
[2019-07-13 16:00] VITALS: BP 125/60
[2019-07-13 20:40] VITALS: BP 121/60
[2019-07-13] MEDS: LATANOPROST OPHT DROP 2.5 ML BOTTLE EACHEYE SCH (21:28)
[2019-07-14 07:30] VITALS: BP 132/55
[2019-07-14] MEDS: OMEGA-3 FATTY ACIDS/FISH OIL CAPSULE PO SCH (08:57)
[2019-07-14] MEDS: QUETIAPINE FUMARATE 25 MG TABLET PO SCH ×3 (08:59→20:19)
[2019-07-14] MEDS: MULTIVIT, IRON, MIN NO. 8, FA TABLET PO SCH (09:00)
[2019-07-14] MEDS: LINAGLIPTIN 5 MG TABLET PO SCH (09:00)
[2019-07-14] MEDS: BRIMONIDINE 0.2% OPHT DROP 10 ML BOTTLE EACHEYE SCH ×2 (09:00→20:20)
[2019-07-14] MEDS: METFORMIN HCL 500 MG TABLET PO SCH ×2 (09:00→17:17)
[2019-07-14] MEDS: DOCUSATE SODIUM 100 MG CAPSULE PO SCH ×2 (09:00→17:09)
[2019-07-14] MEDS: TIMOLOL MALEATE 0.5% OPHT DROP 5 ML BOTTLE EACHEYE SCH ×2 (09:02→20:20)
[2019-07-14] MEDS: LIPASE/PROTEASE/AMYLASE 4200 UNITS CAPSULE.DR PO SCH ×3 (09:07→17:11)
[2019-07-14 16:00] VITALS: BP 102/45
[2019-07-14] MEDS: LATANOPROST OPHT DROP 2.5 ML BOTTLE EACHEYE SCH (20:20)
[2019-07-14 20:46] VITALS: BP 148/76
[2019-07-15 07:30] VITALS: BP 127/62
[2019-07-15] MEDS: OMEGA-3 FATTY ACIDS/FISH OIL CAPSULE PO SCH (09:02)
[2019-07-15] MEDS: QUETIAPINE FUMARATE 25 MG TABLET PO SCH ×3 (09:02→20:36)
[2019-07-15] MEDS: MULTIVIT, IRON, MIN NO. 8, FA TABLET PO SCH (09:03)
[2019-07-15] MEDS: LIPASE/PROTEASE/AMYLASE 4200 UNITS CAPSULE.DR PO SCH ×3 (09:03→17:22)
[2019-07-15] MEDS: LINAGLIPTIN 5 MG TABLET PO SCH (09:03)
[2019-07-15] MEDS: DOCUSATE SODIUM 100 MG CAPSULE PO SCH ×2 (09:03→17:20)
[2019-07-15] MEDS: METFORMIN HCL 500 MG TABLET PO SCH ×2 (09:04→17:21)
[2019-07-15] MEDS: TIMOLOL MALEATE 0.5% OPHT DROP 5 ML BOTTLE EACHEYE SCH ×2 (09:04→20:35)
[2019-07-15] MEDS: BRIMONIDINE 0.2% OPHT DROP 10 ML BOTTLE EACHEYE SCH ×2 (09:04→20:35)
[2019-07-15 15:30] VITALS: BP 113/56
[2019-07-15 20:00] VITALS: BP 158/57
[2019-07-15] MEDS: LATANOPROST OPHT DROP 2.5 ML BOTTLE EACHEYE SCH (20:35)
[2019-07-16 07:30] VITALS: BP 135/64
[2019-07-16] MEDS: METFORMIN HCL 500 MG TABLET PO SCH (07:43)
[2019-07-16] MEDS: LIPASE/PROTEASE/AMYLASE 4200 UNITS CAPSULE.DR PO SCH ×2 (07:46→11:44)
[2019-07-16] MEDS: BRIMONIDINE 0.2% OPHT DROP 10 ML BOTTLE EACHEYE SCH (08:01)
[2019-07-16] MEDS: TIMOLOL MALEATE 0.5% OPHT DROP 5 ML BOTTLE EACHEYE SCH (08:01)
[2019-07-16] MEDS: LINAGLIPTIN 5 MG TABLET PO SCH (08:02)
[2019-07-16] MEDS: MULTIVIT, IRON, MIN NO. 8, FA TABLET PO SCH (08:02)
[2019-07-16] MEDS: OMEGA-3 FATTY ACIDS/FISH OIL CAPSULE PO SCH (08:02)
[2019-07-16] MEDS: QUETIAPINE FUMARATE 25 MG TABLET PO SCH (08:02)
[2019-07-16] MEDS: DOCUSATE SODIUM 100 MG CAPSULE PO SCH (08:03)
== END 2019-07-16 13:00 | DRG 885 ==
LOC: GPS 20:02 → GPSOV3 07-09 14:45 → GPS 07-12 23:54
PROVIDERS: ADMIT Psychiatry & Neurology Psychiatry; ATTEND Internal Medicine
DX: F29 Unspecified psychosis not due to a substance or known physiological condition (principal); B95.2 Enterococcus as the cause of diseases classified elsewhere; E11.65 Type 2 diabetes mellitus with hyperglycemia; F03.91 Unspecified dementia, unspecified severity, with behavioral disturbance; N39.0 Urinary tract infection, site not specified; D68.59 Other primary thrombophilia; E83.42 Hypomagnesemia; E78.5 Hyperlipidemia, unspecified; Z74.09 Other reduced mobility; D64.9 Anemia, unspecified; H40.9 Unspecified glaucoma; G31.9 Degenerative disease of nervous system, unspecified
CPT/HCPCS: 36415; 83735; 84100; 85025